=== PATIENT | female | born 1990 | race Hispanic/Latino ===

== ENCOUNTER 2022-04-18 08:25 | Outpatient (CLI) | payer OTHER | END 2022-04-18 08:26 | disposition home or self-care (01) | LOC: CSHLAB 08:25 | PROVIDERS: ATTEND Obstetrics & Gynecology | DX: U07.1 COVID-19 (principal) | CPT/HCPCS: 87811 ==

== ENCOUNTER 2022-04-18 17:47 | Inpatient (IN) | payer MEDICAID, OTHER, SELFPAY ==
[~2022-04-18 17:47] MED LIST: Bicitra 30 ML UDCUP PO PRN; CEFAZOLIN 2 GM in Sodium Chloride 0.9% 100 ML IVPB SCH; Famotidine/PF 20 mg/2ml Vial SLOW IVP PRN
[2022-04-18] MEDS ORDERED: Promethazine HCl 25 MG/ML VIAL IM PRN ×2 (18:27→21:49)
[2022-04-18] MEDS ORDERED: Naloxone HCl 0.4 mg/ml Vial IVP PRN ×2 (18:27)
[2022-04-18] MEDS ORDERED: Ondansetron HCl/PF 4 MG/2 ML Vial IVP PRN (18:27)
[2022-04-18] MEDS ORDERED: Meperidine HCl/PF 25 MG/ML VIAL SLOW IVP PRN (18:27)
[2022-04-18] MEDS ORDERED: Moisturizing Cream (Eucerin) 113 GM JAR TOP PRN (18:27)
[2022-04-18] MEDS ORDERED: diphenhydrAMINE 50 MG/ML VIAL IVP PRN (18:27)
[2022-04-18] MEDS ORDERED: Promethazine HCl 25 MG SUPP PR PRN (18:27)
[2022-04-18] MEDS ORDERED: Ondansetron PF 4 MG/2 ML Vial IVP PRN ×2 (18:27→21:49)
[2022-04-18] MEDS ORDERED: Naloxone HCl 0.4 mg/ml Vial IV PRN (18:27)
[2022-04-18] MEDS ORDERED: Fentanyl 100 MCG/2 ML VIAL SLOW IVP PRN (18:27)
[2022-04-18] MEDS ORDERED: Communication Order-Pharmacy FS SCH (18:30)
[2022-04-18] MEDS ORDERED: Misoprostol 200 MCG TAB PR PRN (21:49)
[2022-04-18] MEDS ORDERED: Lanolin Ointment 7 GM TUBE TOP PRN (21:49)
[2022-04-18] MEDS ORDERED: Methylergonovine 0.2 MG/ML VIAL IM PRN (21:49)
[2022-04-18] MEDS ORDERED: Simethicone Chewable 80 MG TAB PO PRN (21:49)
[2022-04-18] MEDS ORDERED: Boostrix 0.5 ML (Tdap) VIAL (>/=7 yrs of age) IM ONE (21:49)
[2022-04-18] MEDS ORDERED: Measles/Mumps/Rubella 10 MCG/0.5 ML VIAL SC ONE (21:49)
[2022-04-18] MEDS ORDERED: hydrALAZINE 20 MG/ML VIAL SLOW IVP PRN (21:49)
[2022-04-18] MEDS ORDERED: NS w/ Oxytocin 30 units 500 ML IV SCH (21:49)
[2022-04-18] MEDS ORDERED: Ferrous Sulfate 325 MG TAB PO SCH (22:00)
[2022-04-18] MEDS: Ketorolac Tromethamine 30 MG/ML VIAL IVP SCH (23:16)
[2022-04-19 01:01] LABS: Hemoglobin 10.8 g/dL (12.0-15.5); Mean Corpuscular HGB CONC 34.2 g/dL (32.0-36.0); Mean Corpuscular Volume 84.9 fl (81.6-98.3); Mean Platelet Volume 10.4 fl (7.4-10.4); Platelet Count 148 10x3/uL (150-450); RBC Distribution Width 13.9 % (11.5-14.5); Red Blood Cell (RBC) Count 3.72 10x6/uL (3.90-5.03)
[2022-04-19] MEDS: Ketorolac Tromethamine 30 MG/ML VIAL IVP SCH ×3 (05:22→17:33)
[2022-04-19] MEDS ORDERED: HYDROcodone/Acetaminophen 5/325 mg Tablet PO PRN (06:30)
[2022-04-19 09:00] LABS: Hemoglobin 10.5 g/dL (12.0-15.5); Mean Corpuscular HGB CONC 33.8 g/dL (32.0-36.0); Mean Corpuscular Hemoglobin 28.6 pg (27.0-33.0); Mean Corpuscular Volume 84.7 fl (81.6-98.3); Mean Platelet Volume 10.4 fl (7.4-10.4); Platelet Count 155 10x3/uL (150-450); Red Blood Cell (RBC) Count 3.67 10x6/uL (3.90-5.03)
[2022-04-19] MEDS: HYDROcodone/Acetaminophen 5/325 mg Tablet PO PRN (09:10)
[2022-04-19] MEDS: Ferrous Sulfate 325 MG TAB PO SCH ×2 (09:10→21:10)
[2022-04-19] MEDS: Prenatal Vitamin 1 TAB PO SCH (09:10)
[2022-04-19] MEDS: Ibuprofen 800 MG TAB PO SCH (21:10)
[2022-04-20] MEDS: Ibuprofen 800 MG TAB PO SCH ×2 (05:54→14:00)
[2022-04-20] MEDS: HYDROcodone/Acetaminophen 5/325 mg Tablet PO PRN ×2 (09:40→20:14)
[2022-04-20] MEDS: Prenatal Vitamin 1 TAB PO SCH (09:40)
[2022-04-20] MEDS: Ferrous Sulfate 325 MG TAB PO SCH ×2 (19:11→19:13)
[2022-04-20 21:42] VITALS: BMI 25.3
[2022-04-20] MEDS ORDERED: Vancomycin HCl 1 GM in Sodium Chloride 0.9% 250 ML 250 ML IVPB SCH (22:00)
[2022-04-20] MEDS ORDERED: Clindamycin 150 MG CAP PO SCH ×2 (22:00→23:49)
[2022-04-21] MEDS: Ibuprofen 800 MG TAB PO SCH ×4 (00:36→20:46)
[2022-04-21] MEDS: Clindamycin/D5W 900 MG in Premix Bag 1 BAG IVPB SCH ×3 (02:11→16:05)
[2022-04-21] MEDS: Ferrous Sulfate 325 MG TAB PO SCH (06:54)
[2022-04-21 07:58] LABS: #Eosinphils 0.2 10x3/uL (0.0-0.5); #Monocytes 0.4 10x3/uL (0.0-1.1); #Neutrophils 3.9 10x3/uL (1.5-8.4); %Basophils 0.5 % (0.0-2.0); %Eosinophils 2.4 % (0.0-6.0); %Neutrophils 61.8 % (40.0-75.0); Hemoglobin 10.6 g/dL (12.0-15.5); Mean Corpuscular HGB CONC 32.6 g/dL (32.0-36.0); Mean Corpuscular Hemoglobin 28.4 pg (27.0-33.0); Mean Corpuscular Volume 87.1 fl (81.6-98.3); Mean Platelet Volume 10.1 fl (7.4-10.4); Platelet Count 164 10x3/uL (150-450); RBC Distribution Width 14.2 % (11.5-14.5); Red Blood Cell (RBC) Count 3.73 10x6/uL (3.90-5.03); White Blood Cell (WBC) Count 6.3 10x3/uL (3.5-10.5)
[2022-04-21] MEDS ORDERED: Vancomycin HCl 1 GM in Sodium Chloride 0.9% 250 ML 250 ML IVPB SCH (08:00)
[2022-04-21] MEDS: Prenatal Vitamin 1 TAB PO SCH (08:21)
[2022-04-21 08:57] LABS: ALT (SGPT) 10 U/L (8-55); AST (SGOT) 24 U/L (5-34); Alkaline Phosphatase 124 U/L (40-110); Anion Gap 11 mmol/L (10-20); BUN (Urea Nitrogen) 9 mg/dL (7.0-18.7); Bilirubin, Total 0.6 mg/dL (0.2-1.2); Calc. Creatinine Clearance 157 mL/min (70-130); Calcium 8.1 mg/dL (7.8-10.44); Carbon Dioxide 24 mmol/L (22-29); Chloride 107 mmol/L (98-107); Estimated GFR 123; Globulin 3.1 g/dL (2.4-3.5); Glucose 60 mg/dL (70-105); Potassium 3.8 mmol/L (3.5-5.1); Protein, Total 6.1 g/dL (6.0-8.3); Sodium 138 mmol/L (136-145)
[2022-04-21] MEDS: HYDROcodone/Acetaminophen 5/325 mg Tablet PO PRN (10:36)
[2022-04-21] MEDS: Vancomycin HCl 1 GM in Sodium Chloride 0.9% 250 ML 250 ML IVPB SCH (17:23)
[2022-04-22] MEDS: Clindamycin/D5W 900 MG in Premix Bag 1 BAG IVPB SCH ×2 (01:28→09:53)
[2022-04-22] MEDS: Vancomycin HCl 1 GM in Sodium Chloride 0.9% 250 ML 250 ML IVPB SCH ×2 (02:38→10:41)
[2022-04-22] MEDS: Ibuprofen 800 MG TAB PO SCH (05:17)
[2022-04-22 05:59] VITALS: TEMP 98.6
[2022-04-22] MEDS: HYDROcodone/Acetaminophen 5/325 mg Tablet PO PRN (08:15)
[2022-04-22] MEDS: Prenatal Vitamin 1 TAB PO SCH (08:16)
[2022-04-22 08:20] VITALS: BP 100/56
[2022-04-22 08:59] LABS: #Eosinphils 0.2 10x3/uL (0.0-0.5); #Monocytes 0.2 10x3/uL (0.0-1.1); #Neutrophils 4.2 10x3/uL (1.5-8.4); %Basophils 0.3 % (0.0-2.0); %Eosinophils 2.7 % (0.0-6.0); %Lymphocytes 22.4 % (18.0-47.0); %Monocytes 3.7 % (0.0-10.0); %Neutrophils 70.4 % (40.0-75.0); Hemoglobin 10.7 g/dL (12.0-15.5); Mean Corpuscular HGB CONC 32.5 g/dL (32.0-36.0); Mean Corpuscular Hemoglobin 28.2 pg (27.0-33.0); Mean Corpuscular Volume 86.8 fl (81.6-98.3); Mean Platelet Volume 9.7 fl (7.4-10.4); Platelet Count 194 10x3/uL (150-450); RBC Distribution Width 14.1 % (11.5-14.5); Red Blood Cell (RBC) Count 3.79 10x6/uL (3.90-5.03)
[2022-04-22 09:11] LABS: Vancomycin, Trough 13.6 ug/mL
[2022-04-22] MEDS ORDERED: Sodium Chloride 0.9% 250 ML 250 ML ONE ×2 (09:50→10:00)
[2022-04-22] MEDS: Ferrous Sulfate 325 MG TAB PO SCH (09:54)
== END 2022-04-22 14:15 | disposition home or self-care (01) | DRG 786 ==
LOC: CSHLD 17:47 → CSHANTE 21:20
PROVIDERS: ADMIT Obstetrics & Gynecology; ATTEND Obstetrics & Gynecology
PROC: 10D00Z1 Extraction of Products of Conception, Low, Open Approach (ICD-10-PCS; principal; 2022-04-18)
PROC: 0UQ90ZZ Repair Uterus, Open Approach (ICD-10-PCS; 2022-04-18)
PROC: 8E0ZXY6 Isolation (ICD-10-PCS; 2022-04-18)
DX: O34.211 Maternal care for low transverse scar from previous cesarean delivery (principal); U07.1 COVID-19; O41.03X0 Oligohydramnios, third trimester, not applicable or unspecified; O98.52 Other viral diseases complicating childbirth; O99.12 Other diseases of the blood and blood-forming organs and certain disorders involving the immune mechanism complicating childbirth; O72.1 Other immediate postpartum hemorrhage; L03.311 Cellulitis of abdominal wall; O86.12 Endometritis following delivery; O76 Abnormality in fetal heart rate and rhythm complicating labor and delivery; Z3A.39 39 weeks gestation of pregnancy; Z37.0 Single live birth; D69.6 Thrombocytopenia, unspecified; O71.81 Laceration of uterus, not elsewhere classified; O86.01 Infection of obstetric surgical wound, superficial incisional site
CPT/HCPCS: 36415; 80053; 80202; 85025; 85027; J1580; J1885; J3370; J3490; J7050